=== PATIENT | male | born 1960 | race Caucasian/White ===

== ENCOUNTER 2017-05-21 00:51 | Emergency (ER) | payer BC, OTHER ==
[2017-05-21 00:55] VITALS: BP 185/91
[2017-05-21] MEDS ORDERED: Pantoprazole 40 MG Vial IVPUSH ONE (01:11)
[2017-05-21] MEDS ORDERED: Lactated Ringers 1,000 ML IV ONE (01:11)
[2017-05-21] MEDS ORDERED: Famotidine 20 MG/2 ML SDV IVPUSH ONE (01:11)
[2017-05-21] MEDS ORDERED: Sodium Chloride 0.9% 10 ML Syringe FLUSH PRN (01:11)
[2017-05-21] MEDS ORDERED: Ondansetron 4 MG/2 ML SDV IVPUSH ONE (01:11)
--- NOTE | 2017-05-21 01:11 | EDM.PDOC ---
ED HPI GENERAL MEDICAL PROBLEM - General Chief Complaint: Abdominal Pain Stated Complaint: Abd Pain Time Seen by Provider: 05/21/17 01:05 Source of Information: Reports: Patient, Old Records ([facility] EMR. No paper hospital chart available.) History Limitations: Reports: No Limitations - History of Present Illness INITIAL COMMENTS - FREE TEXT/NARRATIVE: The patient drove himself to the emergency room via private automobile for evaluation of 5/10 nonspecific right lower quadrant and periumbilical abdominal cramping, which occurred at work at about 00:30 a.m. this morning. No history of injury, lifting, or other strenuous activity. The patient denies any chest pain/pressure, heart flutter, dizziness, orthostasis, orthopnea, diaphoresis, paresthesias, recent decreased exercise tolerance, or any other anginal-type symptoms. No recent history of other abdominal pain, heartburn, nausea, diarrhea , melena, gross hematochezia, or any food intolerance, including fatty foods, etc. with normal bowel movement earlier yesterday. He denies any gross hematuria , colic, or other UTI symptoms. The patient also denies any recent fever, cough , wheezing, dyspnea, etc.. No history of recent headaches, visual changes, diplopia, change in mental status, or other change in neurological status. He has long been noncompliant with his previous hypertensive medication. Onset: Today Onset Date: 05/21/17 Onset Time: 00:30 Duration: Constant Location: Reports: Abdomen. Denies: Head, Face, Neck, Chest, Back, Pelvis, Upper Extremity, Left, Upper Extremity, Right, Lower Extremity, Left, Lower Extremity, Right, Radiates to Quality: Reports: Sharp, Other (As above) Severity: Moderate Improves with: Reports: None Worsens with: Reports: None Associated Symptoms: Reports: No Other Symptoms. 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 [No Known Home Meds] 05/21/17 [History] Past Medical History HEENT History: Reports: Impaired Vision, Other (See Below). Denies: Allergic Rhinitis, Cataract, Glaucoma, Hard of Hearing, Macular Degeneration, Retinal Detachment Other HEENT History: Patient wears glasses/bifocals, retinitis pigmentosa Cardiovascular History: Reports: Hypertension, Other (See Below). Denies: Afib , Aneurysm, Arrhythmia, Blood Clots/VTE/DVT, CAD, Heart Murmur, High Cholesterol , VT, PVD, Syncope Other Cardiovascular History: Questionable inferior wall cardiac ischemia by distant resting EKG Respiratory History: Reports: COPD, Intubation, Previous, Pulmonary Fibrosis, TB , Other (See Below). Denies: Asthma, Bronchitis, Recurrent, Intubation, Difficult, PE, Pneumonia, Recurrent, Sleep Apnea Other Respiratory History: COPD and pulmonary fibrosis by chest x-ray, tuberculosis as a child Gastrointestinal History: Reports: Other (See Below). Denies: Celiac Disease, Cholelithiasis, Chronic Constipation, Chronic Diarrhea, Diverticulosis, Gastritis, GERD, GI Bleed, Hepatitis, Hiatal Hernia, Inflammatory Bowel Disease , Irritable Bowel Syndrome, Jaundice, Pancreatitis, PUD Other Gastrointestinal History: Umbilical hernia Genitourinary History: Reports: None. Denies: Acute Renal Failure, BPH, Chronic Renal Insuffiency, Renal Calculus, Retention, Urinary, STD, Urinary Incontinence, UTI, Recurrent Musculoskeletal History: Reports: Arthritis, Fracture, Osteoarthritis, Other ( See Below). Denies: Amputation, Back Pain, Chronic, Gout, Neck Pain, Chronic, RA, SLE Other Musculoskeletal History: Right femur fracture at age 11 Neurological History: Reports: None. Denies: Cerebral Aneurysms, Concussion, CVA, Headaches, Chronic, Head Trauma, Migraines, MS, Parkinson's, Seizure, TIA Psychiatric History: Reports: None. Denies: Abuse, Victim of, ADD, ADHD, Addiction, Anxiety, Depression, Psych Hospitalization(s), PTSD, Suicide Attempt , Suicidal Ideation Endocrine/Metabolic History: Reports: None. Denies: Diabetes, Type I, Diabetes , Type II, Hypothyroidism, IDDM Hematologic History: Reports: None. Denies: Anemia, Blood Transfusion(s), Iron Deficiency Immunologic History: Reports: None. Denies: AIDS, HIV, SLE Oncologic (Cancer) History: Reports: None. Denies: Basal Cell Carcinoma, Hodgkin's Lymphoma, Leukemia, Lymphoma, Malignant Melanoma, Non-Hodgkin's Lymphoma, Squamous Cell Carcinoma Dermatologic History: Reports: None. Denies: Eczema, Psoriasis - Infectious Disease History Infectious Disease History: Reports: Chicken Pox, Meningitis, TB, Other (See Below). Denies: C-Difficile, Measles, Mononucleosis, MRSA, Mumps, Pertussis ( Whooping Cough), Rheumatic Fever, Rubella, Scarlet Fever, Shingles, VRE Other Infectious Disease History: Spinal meningitis of unknown type and tuberculosis as a child - Past Surgical History HEENT Surgical History: Reports: Adenoidectomy, Oral Surgery, Tonsillectomy, Other (See Below) Other HEENT Surgeries/Procedures: [place] teeth extraction 4 at age 14, complete upper teeth extraction in 1992, tonsillectomy and adenoidectomy at age 8 Cardiovascular Surgical History: Reports: None. Denies: Varicose Respiratory Surgical History: Reports: None. Denies: Thoracentesis GI Surgical History: Reports: Appendectomy, Other (See Below). Denies: Cholecystectomy, Colonoscopy, EGD, Hernia, Abdominal, Hernia, Inguinal, Hernia Repair/Other Other GI Surgeries/Procedures: Appendectomy at age 12 Male Surgical History: Reports: Circumcision, Other (See Below). Denies: Vasectomy Other Male Surgeries/Procedures: Circumcision as an infant Endocrine Surgical History: Reports: None. Denies: Thyroid Biopsy Neurological Surgical History: Reports: None. Denies: C-Spine, Discectomy, Laminectomy, Lumbar Spine, Sacral Spine, Spinal Fusion, Vertebroplasty Musculoskeletal Surgical History: Reports: None. Denies: Arthroscopic Procedure , Carpal Tunnel, Ganglion Cyst, Joint Replacement, ORIF, Shoulder Surgery Oncologic Surgical History: Reports: None Dermatological Surgical History: Reports: None - Past Imaging History Past Imaging History: Reports: PFT (In about 2014) Social & Family History - Tobacco Use Smoking Status *Q: Current Every Day Smoker Tobacco Use Within Last Twelve Months: Cigarettes Years of Tobacco use: 42 Packs/Tins Daily: 1 (Maximum use of 2 packs per day) Used Tobacco, but Quit: Yes Smoking Cessation Information Provided To Patient: Yes Second Hand Smoke Exposure: No Second Hand Smoke Education Provided: No - Caffeine Use Caffeine Use: Reports: Soda (2 Mountain Dew's per day). Denies: Coffee, Energy Drinks, Tea - Alcohol Use Alcohol Use History: Yes Days Per Week of Alcohol Use: 2 (No previous DWIs or problems with alcohol abuse ) Number of Drinks Per Day: 5 (Usually mixed drinks) Total Drinks Per Week: 10 Alcohol Use in Last Twelve Months: Yes Alcohol Use Frequency: Socially - Recreational Drug Use Recreational Drug Use: No Drug Use in Last 12 Months: No Recreational Drug Type: Denies: Amphetamines (Speed), Cocaine, Heroin, Inhalants (Glues, Solvents, Aerosols), LSD (Acid), Marijuana/Hashish, Methamphetamine, Morphine - Living Situation & Occupation Living situation: Reports: (1994, 4 children) 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 ED EXAM, GI/ABD - Physical Exam Exam: See Below Exam Limited By: No Limitations General Appearance: Alert, WD/WN, No Apparent Distress Head: Atraumatic, Normocephalic Neck: Normal Inspection, Supple, Non-Tender, Full Range of Motion. No: Lymphadenopathy (L), Lymphadenopathy (R), Thyromegaly Respiratory/Chest: No Respiratory Distress, Lungs Clear, Normal Breath Sounds, No Accessory Muscle Use, Chest Non-Tender. No: Pleural Rub, Retractions Cardiovascular: Normal Peripheral Pulses, Regular Rate, Rhythm, No Edema, No Gallop, No JVD, No Murmur, No Rub. No: Gallop/S3, Gallop/S4, Friction Rub GI/Abdominal Exam: Normal Bowel Sounds, Soft, Non-Tender, No Organomegaly, No Distention, No Abnormal Bruit, No Mass, Pelvis Stable, Hernia (23 centimeter in diameter nonincarcerated umbilical hernia). No: Guarding, Rebound (Male) Exam: Deferred Rectal (Males) Exam: Normal Exam, Normal Rectal Tone, Prostate Normal, Heme - Stool. No: Tenderness (No Hayder space tenderness) Back Exam: Normal Inspection, Full Range of Motion. No: CVA Tenderness (L), CVA Tenderness (R), Muscle Spasm Extremities: Normal Inspection, Normal Range of Motion, Non-Tender, No Pedal Edema, Normal Capillary Refill. No: Ron's Sign Neurological: Alert, Oriented, CN II-XII Intact, Normal Cognition, Normal Gait, No Motor/Sensory Deficits Psychiatric: Normal Affect, Normal Mood Skin Exam: Warm, Dry, Intact, Normal Color, No Rash. No: Diaphoretic, Wound/ Incision Lymphatic: No Adenopathy Course - Vital Signs Last Recorded V/S: Last Vital Signs Temp 36.7 C 05/21/17 00:52 Pulse 72 05/21/17 00:52 Resp 18 05/21/17 00:52 BP 185/91 H 05/21/17 00:52 Pulse Ox 100 05/21/17 00:52 Vital Signs - 24 hr 05/21/17 00:52 Temperature [ 36.7 C Oral] Pulse, 72 Peripheral [ Right Pulse Oximetry] Respiratory 18 Rate Blood Pressure 185/91 H [Right Upper Arm] O2 Sat by Pulse 100 Oximetry - Orders/Labs/Meds Orders: Active Orders 24 hr Category Date Time Status Peripheral IV Care [RC] . DIRECTED Care 05/21/17 01:11 Active Nothing Per Oral Diet [DIET] Diet 05/21/17 Breakfast Active Abdomen Pelvis w Cont [CT] Stat Exams 05/21/17 01:11 Stop Req Abdomen Series w Chest 1V [CR] Stat Exams 05/21/17 01:11 Taken CULTURE URINE [RM] Stat Lab 05/21/17 01:15 Received H PYLORI STOOL ANTIGEN [MREF] Urgent Lab 05/21/17 01:11 Uncollected Sodium Chloride 0.9% [Saline Flush] Med 05/21/17 01:11 Active 10 ml FLUSH ASDIRECTED PRN Obtain Past Medical Record [OM.PC] Urgent Oth 05/21/17 01:11 Active Peripheral IV Insertion Adult [OM.PC] Stat Oth 05/21/17 01:11 Ordered Resuscitation Status Stat Resus Stat 05/21/17 01:11 Ordered Medication Orders Sodium Chloride (Saline Flush) 10 ml FLUSH ASDIRECTED PRN PRN Reason: Keep Vein Open Labs: Laboratory Tests 05/21/17 05/21/17 05/21/17 Range/Units 00:55 00:55 00:55 WBC 12.0 H (4.0-10.2) K/uL RBC 4.75 (4.33-5.41) M/uL Hgb 15.0 (13.1-16.8) g/dL Hct 43.2 (39.0-49.0) % MCV 90.9 D (84.0-98.0) fL MCH 31.6 (28.2-33.3) pg MCHC 34.7 (31.7-36.0) g/dL RDW 12.8 (11.2-14.1) % Plt Count 216 (150-350) K/uL Neut % (Auto) 42.3 L (45.0-80.0) % Lymph % (Auto) 45.7 (10.0-50.0) % [place] % (Auto) 6.6 (2.0-14.0) % Eos % (Auto) 5.2 H (0.0-5.0) % Baso % (Auto) 0.2 (0.0-2.0) % Neut # (Auto) 5.08 (1.40-7.00) K/uL Lymph # (Auto) 5.50 H (0.50-3.50) K/uL Charlotte # (Auto) 0.80 (0.00-1.00) K/uL Eos # (Auto) 0.63 H (0.00-0.50) K/uL Baso # (Auto) 0.03 (0.00-0.20) K/uL PT 11.0 (9.8-11.7) SEC INR 1.0 APTT 28.0 (23.5-30.0) SEC Sodium (136-145) mmol/L Potassium (3.5-5.1) mmol/L Chloride (98-107) mmol/L Carbon Dioxide (21.0-32.0) mmol/L BUN (7-18) mg/dL Creatinine (0.51-1.17) mg/dL Est Cr Clr Drug Dosing mL/min Estimated GFR (MDRD) mL/min Glucose (74-106) mg/dL Lactic Acid (0.4-2.0) mmol/L Uric Acid (2.6-7.2) mg/dL Calcium (8.5-10.1) mg/dL Magnesium (1.8-2.4) mg/dL Total Bilirubin (0.2-1.0) mg/dL Direct Bilirubin (0.0-0.2) mg/dL Indirect Bilirubin AST (15-37) U/L ALT (12-78) U/L Alkaline Phosphatase (46-116) IU/L Total Protein (6.4-8.2) g/dL Albumin (3.4-5.0) g/dL Amylase 34 (25-115) U/L Lipase (73-393) U/L Specimen Type Urine Color Urine Appearance Urine pH (5.0-9.0) Ur Specific Welch (1.005-1.030) Urine Protein (NEGATIVE) mg/dL Urine Glucose (UA) (NEGATIVE) mg/dL Urine Ketones (NEGATIVE) mg/dL Urine Occult Blood (NEGATIVE) Urine Nitrite (NEGATIVE) Urine Bilirubin (NEGATIVE) Urine Urobilinogen (0.2-1.0) E.U./dL Ur Leukocyte Esterase (NEGATIVE) Urine RBC /HPF Urine WBC /HPF Ur Epithelial Cells /LPF Urine Bacteria (NONE TO FEW) /HPF 05/21/17 05/21/17 05/21/17 Range/Units 00:55 00:55 00:55 WBC (4.0-10.2) K/uL RBC (4.33-5.41) M/uL Hgb (13.1-16.8) g/dL Hct (39.0-49.0) % MCV (84.0-98.0) fL MCH (28.2-33.3) pg MCHC (31.7-36.0) g/dL RDW (11.2-14.1) % Plt Count (150-350) K/uL Neut % (Auto) (45.0-80.0) % Lymph % (Auto) (10.0-50.0) % [place] % (Auto) (2.0-14.0) % Eos % (Auto) (0.0-5.0) % Baso % (Auto) (0.0-2.0) % Neut # (Auto) (1.40-7.00) K/uL Lymph # (Auto) (0.50-3.50) K/uL [place] # (Auto) (0.00-1.00) K/uL Eos # (Auto) (0.00-0.50) K/uL Baso # (Auto) (0.00-0.20) K/uL PT (9.8-11.7) SEC INR APTT (23.5-30.0) SEC Sodium 141 (136-145) mmol/L Potassium 4.0 (3.5-5.1) mmol/L Chloride 104 (98-107) mmol/L Carbon Dioxide 28.0 (21.0-32.0) mmol/L BUN 8 (7-18) mg/dL Creatinine 0.99 (0.51-1.17) mg/dL Est Cr Clr Drug Dosing 90.36 mL/min Estimated GFR (MDRD) > 60 mL/min Glucose 117 H (74-106) mg/dL Lactic Acid 1.1 (0.4-2.0) mmol/L Uric Acid 6.3 (2.6-7.2) mg/dL Calcium 8.5 (8.5-10.1) mg/dL Magnesium 1.8 (1.8-2.4) mg/dL Total Bilirubin 1.3 H 1.3 H (0.2-1.0) mg/dL Direct Bilirubin 0.2 (0.0-0.2) mg/dL Indirect Bilirubin 1.1 AST 36 (15-37) U/L ALT 52 (12-78) U/L Alkaline Phosphatase 143 H (46-116) IU/L Total Protein 7.7 (6.4-8.2) g/dL Albumin 4.2 (3.4-5.0) g/dL Amylase (25-115) U/L Lipase 102 (73-393) U/L Specimen Type Urine Color Urine Appearance Urine pH (5.0-9.0) Ur Specific Welch (1.005-1.030) Urine Protein (NEGATIVE) mg/dL Urine Glucose (UA) (NEGATIVE) mg/dL Urine Ketones (NEGATIVE) mg/dL Urine Occult Blood (NEGATIVE) Urine Nitrite (NEGATIVE) Urine Bilirubin (NEGATIVE) Urine Urobilinogen (0.2-1.0) E.U./dL Ur Leukocyte Esterase (NEGATIVE) Urine RBC /HPF Urine WBC /HPF Ur Epithelial Cells /LPF Urine Bacteria (NONE TO FEW) /HPF 05/21/17 Range/Units 01:15 WBC (4.0-10.2) K/uL RBC (4.33-5.41) M/uL Hgb (13.1-16.8) g/dL Hct (39.0-49.0) % MCV (84.0-98.0) fL MCH (28.2-33.3) pg MCHC (31.7-36.0) g/dL RDW (11.2-14.1) % Plt Count (150-350) K/uL Neut % (Auto) (45.0-80.0) % Lymph % (Auto) (10.0-50.0) % [place] % (Auto) (2.0-14.0) % Eos % (Auto) (0.0-5.0) % Baso % (Auto) (0.0-2.0) % Neut # (Auto) (1.40-7.00) K/uL Lymph # (Auto) (0.50-3.50) K/uL [place] # (Auto) (0.00-1.00) K/uL Eos # (Auto) (0.00-0.50) K/uL Baso # (Auto) (0.00-0.20) K/uL PT (9.8-11.7) SEC INR APTT (23.5-30.0) SEC Sodium (136-145) mmol/L Potassium (3.5-5.1) mmol/L Chloride (98-107) mmol/L Carbon Dioxide (21.0-32.0) mmol/L BUN (7-18) mg/dL Creatinine (0.51-1.17) mg/dL Est Cr Clr Drug Dosing mL/min Estimated GFR (MDRD) mL/min Glucose (74-106) mg/dL Lactic Acid (0.4-2.0) mmol/L Uric Acid (2.6-7.2) mg/dL Calcium (8.5-10.1) mg/dL Magnesium (1.8-2.4) mg/dL Total Bilirubin (0.2-1.0) mg/dL Direct Bilirubin (0.0-0.2) mg/dL Indirect Bilirubin AST (15-37) U/L ALT (12-78) U/L Alkaline Phosphatase (46-116) IU/L Total Protein (6.4-8.2) g/dL Albumin (3.4-5.0) g/dL Amylase (25-115) U/L Lipase (73-393) U/L Specimen Type Urincc Urine Color Yellow Urine Appearance Clear Urine pH 5.5 (5.0-9.0) Ur Specific Welch 1.025 (1.005-1.030) Urine Protein Negative (NEGATIVE) mg/dL Urine Glucose (UA) Negative (NEGATIVE) mg/dL Urine Ketones Negative (NEGATIVE) mg/dL Urine Occult Blood Negative (NEGATIVE) Urine Nitrite Negative (NEGATIVE) Urine Bilirubin Negative (NEGATIVE) Urine Urobilinogen 0.2 (0.2-1.0) E.U./dL Ur Leukocyte Esterase Negative (NEGATIVE) Urine RBC 0-5 /HPF Urine WBC Not seen /HPF Ur Epithelial Cells Rare /LPF Urine Bacteria Rare (NONE TO FEW) /HPF Microbiology 05/21/17 01:50 Stool Occult Blood (ROSLYN) - Final Stool / Feces NEGATIVE OCCULT BLOOD Meds: Medications Generic Name Dose Route Start Last Admin Trade Name Freq PRN Reason Stop Dose Admin Sodium Chloride 10 ml 05/21/17 01:11 Saline Flush FLUSH ASDIRECTED PRN Keep Vein Open Discontinued Medications Generic Name Dose Route Start Last Admin Trade Name Freq PRN Reason Stop Dose Admin Famotidine 40 mg 05/21/17 01:11 Pepcid IVPUSH 05/21/17 01:12 ONETIME ONE Ceftriaxone Sodium 1 gm/ 100 mls @ 200 mls/hr 05/21/17 01:15 Sodium Chloride IV Q12H ANDREW Lactated Ringer's 1,000 mls @ 999 mls/hr 05/21/17 01:11 Ringers, Lactated IV 05/21/17 02:11 .BOLUS ONE Metronidazole 500 mg/ Premix 100 mls @ 100 mls/hr 05/21/17 01:15 IV Q8H ANDREW Ondansetron HCl 4 mg 05/21/17 01:11 Zofran IVPUSH 05/21/17 01:12 ONETIME ONE Pantoprazole Sodium 40 mg 05/21/17 01:11 Protonix Iv IVPUSH 05/21/17 01:12 ONETIME ONE - Radiology Interpretation Free Text/Narrative:: Acute abdominal x-rays shows evidence of mild COPD and pulmonary fibrotic changes with additional mild osteoarthritis, however no evidence of cardiomegaly , CHF, pulmonary infiltrates, fluid levels, ileus, obstruction, or free air Departure - Departure Time of Disposition: 02:35 Disposition: Home, Self-Care 01 Condition: Good Clinical Impression: Abdominal pain, Tobacco abuse counseling, Gilbert's syndrome COPD (chronic obstructive pulmonary disease) Qualifiers: COPD type: emphysema Emphysema type: panlobular Qualified Code(s): J43.1 - Panlobular emphysema Umbilical hernia Qualifiers: Obstruction and gangrene presence: without obstruction or gangrene Qualified Code(s): K42.9 - Umbilical hernia without obstruction or gangrene Osteoarthritis Qualifiers: Osteoarthritis location: multiple joints Osteoarthritis type: primary Qualified Code(s): M15.0 - Primary generalized (osteo)arthritis Hypertension Qualifiers: Hypertension type: essential hypertension Qualified Code(s): I10 - Essential ( primary) hypertension - Discharge Information Instructions: Abdominal Pain, Adult, [id number], Umbilical Herniorrhaphy Referrals: Narendra Kaur NP [Primary Care Provider] - Forms: ED Department Discharge Additional Instructions: 1. Follow-up with your regular provider in about 2 days for reevaluation and repeat CBC and comprehensive metabolic panel with recommended preoperative history and physical for recommended colonoscopy and possible concomitant umbilical hernia repair SUSIE. EKG and chest x-ray should also be conducted at time of preoperative history and physical 2. Fill your blood pressure medication prescription SUSIE with close follow-up of your blood pressures with your regular provider 3. Stop all tobacco use SUSIE as directed/per provided information and consider contacting Quit [facility]ne, etc.. - Problem List & Annotations (1) Abdominal pain SNOMED Code(s): 54481999 Code(s): R10.9 - UNSPECIFIED ABDOMINAL PAIN Status: Acute Priority: High Onset Date: 09/23/14 Annotation/Comment:: Note that patient had nonspecific right lower quadrant and periumbilical cramping with possible brief incarcerated hernia, which did resolve spontaneously on its own shortly after patient's arrival to this facility. No pain at time of discharge. Note mild leukocytosis with no left shift, recent fever, etc. and indication of possible viral etiology. Close follow-up by regular provider as per discharge instructions. Note the patient has canceled at least 2 previous appointments for colonoscopy with colonoscopy and possible concomitant umbilical hernia repair recommended SUSIE. Work excuse/[employer] form provided. Note that he has never had problems with his umbilical hernia in the past (2) Umbilical hernia SNOMED Code(s): 050066796 Code(s): K42.9 - UMBILICAL HERNIA WITHOUT OBSTRUCTION OR GANGRENE Status: Chronic Priority: High Annotation/Comment:: As above Qualifiers: Obstruction and gangrene presence: without obstruction or gangrene Qualified Code(s): K42.9 - Umbilical hernia without obstruction or gangrene (3) Hypertension SNOMED Code(s): 36445680 Code(s): I10 - ESSENTIAL (PRIMARY) HYPERTENSION Status: Chronic Priority : High Annotation/Comment:: No history of hypertension with patient not filling his prescription. Occasion compliance strongly encouraged. Continue to observe closely by his regular provider. Patient denies any chest pain or anginal type symptoms with surgery of possible previous inferior wall ischemia by distant EKG with no workup to this point Qualifiers: Hypertension type: essential hypertension Qualified Code(s): I10 - Essential (primary) hypertension (4) COPD (chronic obstructive pulmonary disease) SNOMED Code(s): 05184812 Code(s): J44.9 - CHRONIC OBSTRUCTIVE PULMONARY DISEASE, UNSPECIFIED Status : Chronic Priority: Medium Annotation/Comment:: No current medical therapy with no recent fever, bronchitic type symptoms, etc. Note COPD and pulmonary fibrosis by chest x-ray Qualifiers: COPD type: emphysema Emphysema type: panlobular Qualified Code(s): J43.1 - Panlobular emphysema (5) Osteoarthritis SNOMED Code(s): 439755081 Code(s): M19.90 - UNSPECIFIED OSTEOARTHRITIS, UNSPECIFIED SITE Status: Chronic Priority: Medium Annotation/Comment:: Stable by history Qualifiers: Osteoarthritis location: multiple joints Osteoarthritis type: primary Qualified Code(s): M15.0 - Primary generalized (osteo)arthritis (6) Tobacco abuse counseling SNOMED Code(s): 945845428, [id number] Code(s): Z71.6 - TOBACCO ABUSE COUNSELING Status: Chronic Priority: Medium Annotation/Comment:: Tobacco cessation once again strongly encouraged with information provided at discharge (7) Gilbert's syndrome SNOMED Code(s): 05334209 Code(s): E80.4 - GILBERT SYNDROME Status: Acute Priority: Medium Onset Date: 05/21/17 Annotation/Comment:: Nonsymptomatic. Newly diagnosed - Problem List Review Problem List Initiated/Reviewed/Updated: Yes - My Orders Last 24 Hours: My Active Orders 05/21/17 01:11 Peripheral IV Care [RC] . DIRECTED Abdomen Pelvis w Cont [CT] Stat Abdomen Series w Chest 1V [CR] Stat H PYLORI STOOL ANTIGEN [MREF] Urgent Sodium Chloride 0.9% [Saline Flush] 10 ml FLUSH ASDIRECTED PRN Obtain Past Medical Record [OM.PC] Urgent Peripheral IV Insertion Adult [OM.PC] Stat Resuscitation Status Stat 05/21/17 01:15 CULTURE URINE [RM] Stat 05/21/17 Breakfast Nothing Per Oral Diet [DIET] - Assessment/Plan Last 24 Hours: My Active Orders 05/21/17 01:11 Peripheral IV Care [RC] . DIRECTED Abdomen Pelvis w Cont [CT] Stat Abdomen Series w Chest 1V [CR] Stat H PYLORI STOOL ANTIGEN [MREF] Urgent Sodium Chloride 0.9% [Saline Flush] 10 ml FLUSH ASDIRECTED PRN Obtain Past Medical Record [OM.PC] Urgent Peripheral IV Insertion Adult [OM.PC] Stat Resuscitation Status Stat 05/21/17 01:15 CULTURE URINE [RM] Stat 05/21/17 Breakfast Nothing Per Oral Diet [DIET] Assessment:: As above Plan: As above. Extensive precautions were given to the patient, who is in agreement with the treatment plan. See Patient Instructions for further treatment and plan.
[2017-05-21] MEDS ORDERED: cefTRIAXone 1 GM in Sodium Chloride 0.9% 100 ML IV SCH (01:15)
[2017-05-21] MEDS ORDERED: metroNIDAZOLE/Normal Saline 500 MG in Premix Bag 1 BAG IV SCH (01:15)
[2017-05-21 01:40] LABS: CHLORIDE,CL 104 mmol/L (98-107); SODIUM,NA 141 mmol/L (136-145)
== END 2017-05-21 02:30 | disposition home or self-care (01) ==
LOC: LL.ED 00:51
DX: K42.9 Umbilical hernia without obstruction or gangrene (principal); J43.1 Panlobular emphysema; E80.4 Gilbert syndrome; M15.0 Primary generalized (osteo)arthritis; I10 Essential (primary) hypertension; F17.210 Nicotine dependence, cigarettes, uncomplicated; Z98.890 Other specified postprocedural states; Z71.6 Tobacco abuse counseling
CPT/HCPCS: 36000; 36415; 74022; 80053; 81001; 82150; 82247; 82248; 82272; 83605; 83690; 83735; 84550; 85025; 85610; 85730; 87086; 99284

== ENCOUNTER 2017-07-03 07:46 | Day surgery (SDC) | payer BC, OTHER ==
[~2017-07-03 07:46] MED LIST changes: -Lactated Ringers 1,000 ML IV SCH; -Midazolam 1 MG/ML 2 ML SDV ONE; -Propofol 200 MG/20 ML SDV ONE; -fentaNYL 100 MCG/2 ML SDV ONE
--- NOTE | 2017-07-03 09:09 | PCM.HPR ---
H & P Addendum review - H & P Addendum Review Date of Original H & P: 06/25/17 Date Reviewed: 07/03/17 Time Reviewed: 08:00 Patient was Examined: No Changes
[2017-07-03] MEDS ORDERED: Propofol 200 MG/20 ML SDV ONE ×3 (09:40→09:51)
[2017-07-03] MEDS ORDERED: fentaNYL 100 MCG/2 ML SDV ONE (09:40)
[2017-07-03] MEDS ORDERED: Bupivacaine 0.25%/EPINEPHrine 1:200,000 30 ML SDV INFILT ONE (09:57)
--- NOTE | 2017-07-03 10:35 | PCM.OPNOTE ---
- General Post-Op/Procedure Note Date of Surgery/Procedure: 07/03/17 Operative Procedure(s): Umbilical Hernia Repair Pre Op Diagnosis: Umbilical Hernia Post-Op Diagnosis: Same Anesthesia Technique: Local, MAC Primary Surgeon: Mario Watts Anesthesia Provider: Alexa CLAY in mLs: 5 Complications: None Condition: Good
--- NOTE | 2017-07-03 12:04 | OR ---
Date of Procedure: 07/03/2017 PREOPERATIVE DIAGNOSIS: Umbilical hernia. POSTOPERATIVE DIAGNOSIS: Umbilical hernia. PROCEDURE: Umbilical hernia repair. ANESTHESIA: Local MAC. PROCEDURE IN DETAIL: The patient was brought to the operating room where IV sedation was administered. Abdomen was clipped, prepped with ChloraPrep, and draped sterilely. A 50:50 mixture of 1% lidocaine and 0.25% Marcaine with epinephrine was infiltrated in the periumbilical region. An infraumbilical incision was made and extended to the level of fascia. Hernia sac was dissected off the overlying skin. The fascia was cleared circumferentially and had a 1.5- cm defect. Preperitoneal fat was reduced back into the peritoneal cavity. The fascia was closed with interrupted [id number] #1 Prolene. The overlying skin was secured to the fascia with 3-0 Vicryl, and subcutaneous tissue was reapproximated with 3-0 Vicryl, and the skin was closed with a running 4-0 Vicryl subcuticular suture. Benzoin and Steri-Strips were placed, and sterile dressing was applied. The patient tolerated the procedure well. ESTIMATED BLOOD LOSS: Less than 5 mL. DISPOSITION: He returned to Postanesthesia in stable condition. PATTI WATKINS MD /[id number]
[2017-07-03] MEDS ORDERED: Ibuprofen 200 MG Tab PO ONE (14:09)
[2017-07-03 16:09] VITALS: BP 143/69
== END 2017-07-03 14:50 | disposition home or self-care (01) ==
LOC: LL.SDS 07:46
PROVIDERS: ATTEND Surgery
DX: K42.9 Umbilical hernia without obstruction or gangrene (principal); I10 Essential (primary) hypertension; R73.9 Hyperglycemia, unspecified; F17.210 Nicotine dependence, cigarettes, uncomplicated; Z90.49 Acquired absence of other specified parts of digestive tract; Z79.899 Other long term (current) drug therapy
CPT/HCPCS: 49585; A9270; J2704; J3010

== ENCOUNTER → 2017-07-03 | Day surgery (SDC) | payer BC, OTHER ==
[~2017-07-03] MED LIST: Lactated Ringers 1,000 ML IV SCH; Midazolam 1 MG/ML 2 ML SDV ONE; Propofol 200 MG/20 ML SDV ONE; Sodium Chloride 0.9% 10 ML Syringe FLUSH PRN; fentaNYL 100 MCG/2 ML SDV ONE
[2017-07-03 08:33] VITALS: BP 132/81
--- NOTE | 2017-07-03 09:08 | PCM.HPR ---
H & P Addendum review - H & P Addendum Review Date of Original H & P: 06/25/17 Date Reviewed: 07/03/17 Time Reviewed: 08:00 Patient was Examined: No Changes
--- NOTE | 2017-07-03 09:38 | PCM.OPNOTE ---
- General Post-Op/Procedure Note Date of Surgery/Procedure: 07/03/17 Operative Procedure(s): Colonoscopy with polypectomy Findings: Asc Colon polyp; tics Pre Op Diagnosis: Colon Screening Post-Op Diagnosis: Same Anesthesia Technique: MAC Primary Surgeon: Mario Watts Anesthesia Provider: Alexa Cheung Pathology: polyp EBL in mLs: 0 Complications: None Condition: Good
--- NOTE | 2017-07-03 12:04 | OR ---
Date of Procedure: 07/03/2017 PREOPERATIVE DIAGNOSIS: Colon screening. POSTOPERATIVE DIAGNOSES: 1. Ascending colon polyp. 2. Sigmoid diverticulosis. PROCEDURE: Colonoscopy with polypectomy. ANESTHESIA: IV sedation. PROCEDURE IN DETAIL: The patient was brought to the procedure room where he was placed on his left side, and IV sedation was administered. Digital rectal exam was performed which was normal. Colonoscope was inserted and advanced to the level of the cecum without difficulty. Cecal position was confirmed by identifying the appendiceal lumen and ileocecal valve. Prep was good, and surfaces were well visualized. Upon withdrawing the scope, there is an 8 mm sessile polyp in the distal ascending colon that was removed with a cautery snare and retrieved in the polyp trap. The transverse and descending colon were normal. Sigmoid colon had several small diverticula present. Rectum was normal, and retroflexion was normal. Air was removed, and the scope was withdrawn. The patient tolerated the procedure well and returned to recovery in stable condition. However, the patient will follow up with me in two weeks for review of pathology report. If the polyp is adenomatous, he should undergo a repeat colonoscopy again in three years. Otherwise, he could wait 10 years until his next colon screening. PATTI WATKINS MD /[id number]
== END | disposition home or self-care (01) ==
LOC: LL.SDS 07:53
PROVIDERS: ATTEND Surgery
DX: Z12.11 Encounter for screening for malignant neoplasm of colon (principal); D12.2 Benign neoplasm of ascending colon; K57.30 Diverticulosis of large intestine without perforation or abscess without bleeding; I10 Essential (primary) hypertension; R73.9 Hyperglycemia, unspecified; F17.210 Nicotine dependence, cigarettes, uncomplicated; Z90.49 Acquired absence of other specified parts of digestive tract; Z79.899 Other long term (current) drug therapy
CPT/HCPCS: 45385; J2250; J2704; J3010